=== PATIENT | female | born 1965 | race Caucasian/White ===

== ENCOUNTER 2017-06-19 08:14 | Emergency (ER) | payer OTHER ==
[2017-06-19] MEDS ORDERED: Hydrochlorothiazide 25 MG TAB ONE (08:37)
== END 2017-06-19 08:55 | disposition home or self-care (01) ==
LOC: BURERS 08:14
DX: I10 Essential (primary) hypertension (principal); J44.9 Chronic obstructive pulmonary disease, unspecified; F17.210 Nicotine dependence, cigarettes, uncomplicated; Z79.899 Other long term (current) drug therapy
CPT/HCPCS: 99283

== ENCOUNTER 2017-12-05 15:40 | Emergency (ER) | payer OTHER ==
[2017-12-05] MEDS ORDERED: Albuterol Sulfate 1.25 MG/3 ML NEB ONE ×3 (15:59→16:45)
[2017-12-05 16:08] LABS: #Basophils 0.1 thou/uL (0.0-0.2); #Eosinphils 0.1 thou/uL (0.0-0.7); #Lymphocytes 1.7 thou/uL (1.20-3.40); #Monocytes 0.9 thou/uL (0.11-0.59); %Basophils 1.2 % (0.0-1.0); %Eosinophils 1.3 % (0.0-10.0); %Lymphocytes 17.2 % (21.0-51.0); %Monocytes 8.7 % (0.0-10.0); %Neutrophils 71.6 % (42.0-75.0); Hemoglobin 18.3 g/dL (12.0-16.0); Mean Corpuscular HGB CONC 32.6 g/dL (32.0-36.0); Mean Corpuscular Hemoglobin 33.1 pg (27.0-31.0); Mean Platelet Volume 7.8 fL (7.4-10.4); Platelet Count 235 thou/uL (130-400); RBC Distribution Width 13.4 % (11.5-14.5); Red Blood Cell (RBC) Count 5.53 mill/uL (4.20-5.40); White Blood Cell (WBC) Count 9.8 thou/uL (4.8-10.8)
[2017-12-05] MEDS ORDERED: Magnesium Sulfate 2 GM/100 ML BAG ONE (16:10)
[2017-12-05 16:22] LABS: ALT (SGPT) 21 U/L (8-55); AST (SGOT) 20 U/L (5-34); Alkaline Phosphatase 66 U/L (40-150); Anion Gap 17 mmol/L (10-20); BUN (Urea Nitrogen) 21 mg/dL (9.8-20.1); Bilirubin, Total 0.7 mg/dL (0.2-1.2); Calc. Creatinine Clearance 0 mL/min (70-130); Calcium 9.9 mg/dL (7.8-10.44); Carbon Dioxide 31 mmol/L (22-29); Chloride 97 mmol/L (98-107); Estimated GFR-MDRD 72; Globulin 4.1 g/dL (2.4-3.5); Glucose 118 mg/dL (70-105); Potassium 4.1 mmol/L (3.5-5.1); Protein, Total 8.1 g/dL (6.0-8.3); Sodium 141 mmol/L (136-145)
[2017-12-05 16:23] LABS: CKMB 1.5 ng/mL (0-6.6); Troponin I Less than 0.010 ng/mL (< 0.028)
[2017-12-05] MEDS ORDERED: methylPREDNISolone Sod Succ/PF 125 MG/2 ML VIAL ONE (16:34)
[2017-12-05] MEDS ORDERED: cefTRIAXone\\ROCEPHIN 2 GM VIAL ONE (16:45)
--- NOTE | 2017-12-05 19:43 | RAD ---
PORTABLE CHEST 12/05/17 An AP portable film at 1545 is compared with an 06/11/10 study. The heart is normal in size. While there are no major lobar infiltrates, there is a very slight amoun t of haziness in the right middle lobe region and a little indistinctness of the right heart border. I cannot completely exclude a minimal infiltrate here, but the finding is not definite. The lungs are otherwise clear, but slightly hyperinflated. The mediastinum appears normal. IMPRESSION: Equivocal right middle lobe haziness. Code T POS: HOME
== END 2017-12-05 17:58 | disposition short-term general hospital (02) ==
LOC: BURERS 15:40
DX: J44.1 Chronic obstructive pulmonary disease with (acute) exacerbation (principal); I10 Essential (primary) hypertension; F17.210 Nicotine dependence, cigarettes, uncomplicated; Z79.899 Other long term (current) drug therapy
CPT/HCPCS: 36415; 71045; 80053; 82553; 83880; 84484; 85025; 87040; 93005; 94640; 94760; 96365; 96367; 96375; J0696; J2930; J3475; J7620

== ENCOUNTER 2022-06-03 16:39 | Emergency (ER) | payer OTHER ==
[2022-06-03 17:53] LABS: #Basophils 0.3 thou/uL (0.0-0.2); #Eosinphils 0.1 thou/uL (0.0-0.7); #Lymphocytes 0.5 thou/uL (1.20-3.40); #Monocytes 0.5 thou/uL (0.11-0.59); %Basophils 2.9 % (0.0-1.0); %Eosinophils 0.8 % (0.0-10.0); %Monocytes 4.7 % (0.0-10.0); %Neutrophils 86.6 % (42.0-75.0); Mean Corpuscular HGB CONC 31.2 g/dL (32.0-36.0); Mean Corpuscular Hemoglobin 29.9 pg (27.0-31.0); Mean Corpuscular Volume 95.9 fL (78.0-98.0); Mean Platelet Volume 6.5 fL (7.4-10.4); Platelet Count 224 thou/uL (130-400); RBC Distribution Width 14.1 % (11.5-14.5); Red Blood Cell (RBC) Count 4.34 mill/uL (4.20-5.40); White Blood Cell (WBC) Count 10.4 thou/uL (4.8-10.8)
[2022-06-03 18:09] LABS: ALT (SGPT) 20 U/L (8-55); AST (SGOT) 14 U/L (5-34); Albumin 3.8 g/dL (3.5-5.0); Alkaline Phosphatase 88 U/L (40-110); Anion Gap 15 mmol/L (10-20); BUN (Urea Nitrogen) 20 mg/dL (9.8-20.1); Bilirubin, Total 0.2 mg/dL (0.2-1.2); Calc. Creatinine Clearance 0 mL/min (70-130); Calcium 9.4 mg/dL (7.8-10.44); Carbon Dioxide 33 mmol/L (22-29); Chloride 98 mmol/L (98-107); Estimated GFR 73; Globulin 3.8 g/dL (2.4-3.5); Glucose 142 mg/dL (70-105); Potassium 3.6 mmol/L (3.5-5.1); Protein, Total 7.6 g/dL (6.0-8.3); Sodium 142 mmol/L (136-145)
[2022-06-03 19:00] LABS: SARS-CoV-2 NAA Rapid Test DETECTED (NotDetected)
[2022-06-03] MEDS ORDERED: Ondansetron PF 4 MG/2 ML Vial ONE (19:28)
== END 2022-06-03 19:54 | disposition home or self-care (01) ==
LOC: BURERS 16:39
DX: U07.1 COVID-19 (principal); J44.9 Chronic obstructive pulmonary disease, unspecified; I10 Essential (primary) hypertension; F17.210 Nicotine dependence, cigarettes, uncomplicated; Z79.899 Other long term (current) drug therapy
CPT/HCPCS: 71045; 80053; 83880; 84484; 85025; 93005; 94640; 94760; U0002; 36415; 96374; J2405; J7620

== ENCOUNTER 2022-08-29 11:19 | Outpatient (CLI) | payer OTHER | END 2022-08-29 11:20 | disposition home or self-care (01) | LOC: BURRAD 11:19 | PROVIDERS: ATTEND Registered Nurse Community Health | DX: R06.02 Shortness of breath (principal) | CPT/HCPCS: 71046 ==